=== PATIENT | male | born 1975 | race Caucasian/White ===

== ENCOUNTER 2024-01-29 12:34 | Emergency (ER) | payer OTHER, SELFPAY ==
[2024-01-29] VITALS (15 sets, daily range): BP systolic 152–184; BP diastolic 79–99; PULSE 44–61; RESP 11–27; TEMP 36.5; O2SAT 98–100; BMI 26.9
--- NOTE | 2024-01-29 12:44 | EKG_ITS ---
[place] [address] [address] [place] [id number] Test Date: 2024-01-29 Pat Name: Lukasz Villegas Jr Department: [facility] Room: Gender: Male [employer]: CODY : 1975 Requested By: Order Number: [id number] Reading MD: Yordan Gonzalez MD Measurements Intervals [place] Rate: 48 P: 11 [place]: 152 QRS: 46 QRSD: 94 T: 30 QT: 418 QTc: 373 Interpretive Statements Sinus bradycardia Electronically Signed On 01-29-2024 16:27:38 PDT by Yordan Gonzalez MD
--- NOTE | 2024-01-29 12:44 | DI.RAD.S_ITS ---
PROCEDURE: XR CHEST 1V INDICATIONS: chest pain TECHNIQUE: One view of the chest was acquired. COMPARISON: None. FINDINGS: Surgical changes and devices: None. Lungs and pleura: Lungs are clear. No pleural effusions or pneumothorax. Mediastinum: Mediastinal contours appear normal. Heart size is normal. Bones and chest wall: No suspicious bony lesions. Overlying soft tissues appear unremarkable. IMPRESSION: No acute pulmonary process. Dictated by: Cele Dotson M.D. on 01/29/2024 at 15:07 Approved by: Cele Dotson M.D. on 01/29/2024 at 15:08
[2024-01-29 13:25] LABS: Add Manual Diff / Slide Review NO; Basophils Absolute Auto 100 /uL (0-100); Basophils Percent Auto 0.7 % (0-2); Eosinophils Absolute Auto 100 /uL (0-450); Hematocrit 39.3 % (41-53); Hemoglobin 13.2 g/dL (13.5-17.5); Lymphocytes Absolute Auto 1900 /uL (1100-4500); Lymphocytes Percent Auto 21.2 % (25-40); Mean Corpuscular HGB Conc 33.5 % (30-36); Mean Corpuscular Hemoglobin 30.3 PG (26-34); Mean Corpuscular Volume 90.5 fL (80-100); Monocytes Absolute Auto 600 /uL (0-900); Monocytes Percent Auto 6.9 % (3-14); Neutrophils Absolute Auto 6100 /uL (1500-7000); Neutrophils Percent Auto 70.2 % (50-75); Platelet Count 341 X10^3/uL (150-400); Red Blood Cell Count 4.34 X10^6/uL (4.5-5.9); Red Cell Distribution Width 13.2 % (11.6-14.8); White Blood Cell Count 8.7 X10^3/uL (4.5-11.0)
[2024-01-29 13:30] LABS: INR 1.1 (0.9-1.3)
[2024-01-29 13:33] LABS: PTT Partial Thromboplastin Tim 37 SECONDS (25.1-36.5)
[2024-01-29 13:38] LABS: Alanine Aminotransferase 20 IU/L (<50); Albumin 4.5 g/dL (3.5-5.0); Albumin Globulin Ratio 1.5 (1.0-2.8); Alkaline Phosphatase 73 U/L (38-126); Aspartate Aminotransferase 27 IU/L (17-59); BUN Creatinine Ratio 12.7 (6-22); Bilirubin Total 0.4 mg/dL (0.2-1.3); Blood Urea Nitrogen 10 mg/dL (9-20); Calcium 9.3 mg/dL (8.4-10.2); Carbon Dioxide 25 mmol/L (22-32); Chloride 105 mmol/L (98-107); Estimated Glomerular Filt Rate > 60 mL/min (>60); Globulin 3.1 g/dL (1.7-4.1); Glucose 120 mg/dL (70-100); HEMOLYSIS < 15 (0-50); Lipase 760 U/L (23-300); Magnesium 2.1 mg/dL (1.6-2.3); Potassium 4.2 mmol/L (3.4-5.1); Sodium 139 mmol/L (137-145); Total Protein 7.6 g/dL (6.3-8.2)
[2024-01-29 13:47] LABS: NT-proBNP (BNP-Adult 18+) < 20 pg/mL (<125); Troponin I < 0.012 ng/mL (0.01-0.034)
--- NOTE | 2024-01-29 14:35 | ED.CHESTPAIN ---
HPI - Chest Pain General Chief Complaint: Chest Pain Stated Complaint: Chest px Time Seen by Provider: 01/29/24 14:20 Source: patient Mode of arrival: Ambulatory Limitations: no limitations History of Present Illness HPI narrative: 48-year-old male with no known history of coronary artery disease, history of remote smoking, no diabetes, no high blood pressure medications, no cholesterol issues, no early history CAD from family members, now with 1 week duration of right-sided lateral chest discomfort, 2 days duration of left parasternal anterior chest discomfort, worse somewhat with deep breathing and movements, had been doing yard work last couple of days. No fall injury or trauma, no fevers or chills, no cough. No history of blood clots to legs or lungs, no leg pain or swelling symptoms. Related Data Allergies Allergy/AdvReac Type Severity Reaction Status Date / Time codeine Allergy Verified 01/29/24 12:37 Penicillins Allergy Verified 01/29/24 12:37 Review of Systems Review of Systems Narrative: see HPI Patient History Social History Smoking Status: Former smoker Smoking Status: Former smoker alcohol intake frequency: holidays/special occasions only Substance Use Type: marijuana Exam Narrative Exam Narrative: GENERAL: Well-developed patient, in mild distress. HEAD: Atraumatic. Normocephalic. EYES: Pupils equal round and reactive. Extraocular motions intact. No scleral icterus. No injection or drainage. ENT: Nose without bleeding, purulent drainage. Throat without erythema, tonsillar hypertrophy or exudate. Airway patent. NECK: Trachea midline. Non tender CARDIOVASCULAR: Regular rate and rhythm without murmurs, gallops, or rubs. RESPIRATORY: Clear to auscultation. Breath sounds equal bilaterally. No wheezes, rales, or rhonchi. GASTROINTESTINAL: Abdomen soft, non-tender, nondistended. EXTREMITIES: No edema or joint tenderness. BACK: Nontender without deformity or crepitance. No flank tenderness. NEURO: AOx3. SKIN: No rash or erythema of visible areas Initial Vital Signs Initial Vital Signs: Vital Signs Temperature 97.7 F 01/29/24 12:37 Pulse Rate 56 L 01/29/24 12:37 Respiratory Rate 18 01/29/24 12:37 Blood Pressure 166/95 H 01/29/24 12:37 Pulse Oximetry 99 01/29/24 12:37 Oxygen Delivery Method Room Air 01/29/24 12:37 Course Orders Ordered: ED Orders 01/29/24 12:44 XR chest 1V Stat EKG-12 Lead Stat 01/29/24 13:15 Complete Blood Count AUTO DIFF Stat Comprehensive Metabolic Panel Stat Lipase Stat Magnesium Stat NT-proBNP (BNP-Adult 18+) Stat PTT Partial Thromboplastin Jorgito Stat Prothrombin Time INR Stat Troponin & CK Cardiac Panel Stat 01/29/24 15:35 Troponin I Stat Discontinued Medications Ketorolac Tromethamine (Ketorolac 30 Mg/Ml Vial) 15 mg IV NOW ONE Stop: 01/29/24 15:10 Last Admin: 01/29/24 15:40 Dose: 15 mg Documented By: CTS Vital Signs Vital signs: Vital Signs - 8 hr 01/29/24 12:48 01/29/24 12:49 01/29/24 12:49 Pulse Rate 61 51 L Respiratory Rate 12 Blood Pressure 183/89 H Pulse Oximetry 100 100 01/29/24 13:00 01/29/24 13:00 01/29/24 13:30 Pulse Rate 54 L Respiratory Rate 24 Blood Pressure 166/79 H 184/99 H Pulse Oximetry 99 01/29/24 13:30 01/29/24 14:00 01/29/24 14:00 Pulse Rate 53 L 49 L Respiratory Rate 19 14 Blood Pressure 174/86 H Pulse Oximetry 98 98 01/29/24 14:30 01/29/24 14:30 01/29/24 15:00 Pulse Rate 46 L 49 L Respiratory Rate 19 22 Blood Pressure 152/82 H Pulse Oximetry 98 99 01/29/24 15:02 01/29/24 15:02 01/29/24 15:30 Pulse Rate 55 L 48 L Respiratory Rate 22 15 Blood Pressure 177/90 H Pulse Oximetry 100 99 01/29/24 15:31 01/29/24 15:31 01/29/24 16:00 Pulse Rate 46 L 48 L Respiratory Rate 21 21 Blood Pressure 160/92 H Pulse Oximetry 99 98 01/29/24 16:00 01/29/24 16:30 01/29/24 16:31 Pulse Rate 48 L Respiratory Rate 27 H Blood Pressure 166/79 H 157/91 H Pulse Oximetry 98 01/29/24 16:31 01/29/24 17:00 01/29/24 17:00 Pulse Rate 48 L 44 L Respiratory Rate 27 H 11 L Blood Pressure 162/86 H Pulse Oximetry 99 99 MDM - Chest Pain Lab Data Attestation: I reviewed the patient's lab results. 01/29/24 13:15 01/29/24 13:15 Labs: Lab Results 01/29/24 01/29/24 Range/Units 13:15 15:35 WBC 8.7 (4.5-11.0) X10^3/uL RBC 4.34 L (4.5-5.9) X10^6/uL Hgb 13.2 L (13.5-17.5) g/dL Hct 39.3 L (41-53) % MCV 90.5 (80-100) fL MCH 30.3 (26-34) PG MCHC 33.5 (30-36) % RDW 13.2 (11.6-14.8) % Plt Count 341 (150-400) X10^3/uL Neut % (Auto) 70.2 (50-75) % Lymph % (Auto) 21.2 L (25-40) % [place] % (Auto) 6.9 (3-14) % Eos % (Auto) 1.0 L (2-4) % Baso % (Auto) 0.7 (0-2) % Neut # (Auto) 6100 (4817-0505) /uL Lymph # (Auto) 1900 (6728-9012) /uL [place] # (Auto) 600 (0-900) /uL Eos # (Auto) 100 (0-450) /uL Baso # (Auto) 100 (0-100) /uL PT 13.0 H (9.4-12.5) SECONDS INR 1.1 (0.9-1.3) APTT 37 H (25.1-36.5) SECONDS Sodium 139 (137-145) mmol/L Potassium 4.2 (3.4-5.1) mmol/L Chloride 105 (98-107) mmol/L Carbon Dioxide 25 (22-32) mmol/L BUN 10 (9-20) mg/dL Creatinine 0.79 (0.66-1.25) mg/dL Estimated GFR > 60 (>60) mL/min BUN/Creatinine Ratio 12.7 (6-22) Glucose 120 H (70-100) mg/dL Calcium 9.3 (8.4-10.2) mg/dL Magnesium 2.1 (1.6-2.3) mg/dL Total Bilirubin 0.4 (0.2-1.3) mg/dL AST 27 (17-59) IU/L ALT 20 (<50) IU/L Alkaline Phosphatase 73 (38-126) U/L Total Creatine Kinase 69 (55-170) U/L Troponin I < 0.012 < 0.012 (0.01-0.034) ng/mL NT-Pro-B Natriuret Pep < 20 (<125) pg/mL Total Protein 7.6 (6.3-8.2) g/dL Albumin 4.5 (3.5-5.0) g/dL Globulin 3.1 (1.7-4.1) g/dL Albumin/Globulin Ratio 1.5 (1.0-2.8) Lipase 760 H (23-300) U/L ECG Data Attestation: I personally reviewed and interpreted this ECG as follows: Interpretation: Sinus bradycardia with rate of 48, no obvious ST segment elevation or depression changes. Flat T-waves diffusely noted. MA 152, QRS 94, QTC 373. MDM Narrative Medical decision making narrative: 48-year-old male with 2 days duration left anterior chest discomfort, longer duration 1 week right lateral chest discomfort, recent yd work. Some tenderness to left anterior chest on exam that reproduces his symptoms. Possible loss musculoskeletal cause of symptoms. EKG shows no obvious acute changes. Initial troponin negative. Chest x-ray unremarkable. We will obtain interval repeat troponin. Mild lipasemia but no tenderness adbomen. IV Toradol Repeat troponin negative. Symptoms improved. Consider ibuprofen [id number] NSAID for pain control. Further testing as an outpatient for now. Discharged home, stable, improved Discharge Plan Departure Patient Disposition: Home Clinical Impression: Chest wall pain, Atypical chest pain Activity Restrictions/Additional Instructions: Left anterior chest discomfort 2 days, longer duration right-sided chest discomfort, recent yard work. Some tenderness left anterior chest on examination that reproduces discomfort symptoms. Possible chest wall etiology. EKG and serial blood tests not suggestive of heart attack at this time. Chest x-ray no acute changes noted. You do have some history of remote smoking and previous high blood pressure, as cardiac risk factors. It might be prudent to have further cardiac testing as an outpatient for now. Cardiology contact information provided, though you might require referral from your primary care provider. Consider use of aspirin daily for now. Follow up with Cardiology, call office during open hours tomorrow. Return to this/nearest emergency department for any change worsening symptoms or any concerns prior Referrals: Miscellaneous,DoctorMD [Primary Care Provider] - Darling Ardon MD [Physician] - Stand Alone Forms: Patient Portal/API
[2024-01-29 15:33] LABS: Creatine Kinase 69 U/L (55-170)
[2024-01-29] MEDS: KETOROLAC 30 MG/ML VIAL 15 MG IV (15:40)
[2024-01-29 16:14] LABS: Troponin I < 0.012 ng/mL (0.01-0.034)
== END 2024-01-29 17:08 | disposition home or self-care (01) ==
PROVIDERS: Emergency Provider Emergency Medicine
DX: R07.89 Other chest pain (principal); R00.1 Bradycardia, unspecified
CPT/HCPCS: 36415; 71045; 80053; 82550; 83690; 83735; 83880; 84484; 85025; 85610; 85730; 93005; 93010; 96374; 99284; J1885